=== PATIENT | male | born 1975 | race Asian ===

== ENCOUNTER 2016-11-23 17:37 | Emergency (ER) | payer OTHER ==
--- NOTE | ~2016-11-23 | CR108 ---
[facility] A Service of [facility] & [facility] RADIOLOGY TEXT RESULTS PATIENT: DIEGO MCKEON LOCATION: CFTX : 79 UNIT #: [id number] AGE: [address]: Rosemarie Stanford APRN SEX: M ORDER DR: [id number] [facility] [address] [place], [place] [address] [id number] E MR#: [id number] Acc #: [id number] NAME: DIEGO MCKEON : 1975 SEX: M STUDY DATE/TIME: 11/23/2016 19:48 UNIT: [facility] ROOM: STUDY DESCRIPTION: CR Finger 2 View 2nd Lt Attending Physician: Rosemarie Stanford A.P.R.N. Ordering Physician: Rosemarie Stanford A.P.R.N. Primary Care Physician: Elma Farmer MEDICAL IMAGING REPORT This report is preliminary unless electronic signature is present EXAM Left second digit 3 views HISTORY Laceration with needle today. Pain. FINDINGS 3 views left second digit demonstrate normal bone alignment. No fracture, joint space narrowing or dislocation. No opaque soft tissue foreign body. IMPRESSION Negative left second digit. Dictated by... Marlon Lemos M.D. THIS IS AN ELECTRONICALLY VERIFIED REPORT Marlon Lemos M.D. at 11/23/2016 10:48 PM GAMALIEL/crystal TD: 11/23/2016 21:47 JOB #: [id number] MEDICAL IMAGING REPORT Page 1 of 1 COPY
[~2016-11-23 17:37] MED LIST: EFFEXOR37.5 MG PO; GABAPENTIN300 M2 PO; PRAVASTATIN SOD20 MG PO; PRINIVIL5 MG PO; VITAMIN B122500 MCG PO; VITAMIN D35000 UNIT PO; ZANTAC150 MG PO
== END 2016-11-23 20:50 | disposition home or self-care (01) ==
LOC: CED 17:37 → CFTX 17:37
DX: S61.231A Puncture wound without foreign body of left index finger without damage to nail, initial encounter (principal); F41.9 Anxiety disorder, unspecified; F32.9 Major depressive disorder, single episode, unspecified; E11.9 Type 2 diabetes mellitus without complications; Z98.890 Other specified postprocedural states; Z88.8 Allergy status to other drugs, medicaments and biological substances; Z23 Encounter for immunization; W22.8XXA Striking against or struck by other objects, initial encounter; Y92.69 Other specified industrial and construction area as the place of occurrence of the external cause; Y93.89 Activity, other specified; Y99.0 Civilian activity done for income or pay
CPT/HCPCS: 73140; 90471; 90715; 99283